=== PATIENT | female | born 1985 | race Caucasian/White ===

== ENCOUNTER 2018-07-25 09:59 | Outpatient (CLI) | payer OTHER | END 2018-07-25 14:54 | disposition home or self-care (01) | LOC: LAB 09:59 | DX: J11.1 Influenza due to unidentified influenza virus with other respiratory manifestations (principal) ==

== ENCOUNTER 2023-11-28 06:19 | Emergency (ER) | payer OTHER ==
[~2023-11-28] VITALS: Ht 160 cm; Wt 77.1 kg
[2023-11-28] MEDS ORDERED: OXCARBAZEPINE150 MG PO (06:36)
[2023-11-28] MEDS ORDERED: ZOLOFT100 MG PO (06:36)
[2023-11-28] MEDS ORDERED: PROMETHAZINE HCL 50 MG/ML AMPUL IM STA (07:01)
[2023-11-28] MEDS ORDERED: FAMOTIDINE/PF 20 MG/2 ML VIAL IV PUSH STA (07:01)
[2023-11-28] MEDS ORDERED: 0.9 % SODIUM CHLORIDE 1,000 ML IV ONE (07:15)
[2023-11-28] MEDS ORDERED: PROMETHAZINE HCL 50 MG/ML AMPUL IM ONE (07:22)
[2023-11-28] MEDS ORDERED: FAMOtidine 200mg/20ml VIAL ONE (07:23)
[2023-11-28 08:03] LABS: URINE APPEARANCE Cloudy; URINE BILIRRUBIN Negative (NEGATIVE); URINE BLOOD Negative; URINE COLOR Yellow; URINE GLUCOSE Negative (NEGATIVE); URINE LEUKOCYTE Negative; URINE NITRATE Negative; URINE UROBILINOGEN 0.2 E.U./dl
[2023-11-28 08:04] LABS: URINE BACTERIA 6226.6 uL (0.0-1933); URINE RBC 2.5 uL (0.0-20.8); URINE WBC 25.1 uL (0.0-23.2)
[2023-11-28 08:08] LABS: HEMATOCRIT 42.6 % (36.0-45.00); HEMOGLOBIN 15.1 g/dL (12.0-15.00); MEAN CELL VOLUME 91.8 fL (80.00-100.00); MEAN CORPUSCULAR HEMOGLOBIN 32.6 pg (27.00-32.0); MEAN CORPUSCULAR HGB CONC 35.5 g/dl (32.0-36.0); PLATELET COUNT 329 K/uL (150-450); RED BLOOD COUNT 4.64 M/uL (4.00-6.00); RED CELL DISTRIBUTION WIDTH 13.2 % (11.5-14.5)
[2023-11-28 08:36] LABS: URINE PROTEIN 100 (NEGATIVE)
[2023-11-28 08:46] LABS: ALBUMIN 4.7 gm/dL (3.4-5.0); ALKALINE PHOSPHATASE 71 U/L (50-136); ALT/SGPT 26 U/L (12-78); AMYLASE 156 U/L (25-115); ANION GAP 10 (10.0-20.0); AST/SGOT 22 U/L (15-37); BILIRUBIN TOTAL 0.76 mg/dL (0.3-1.2); BLOOD UREA NITROGEN 11 mg/dL (7-18); BUN CREA RATIO 12 (7.0-25.0); CALCIUM 10.1 mg/dL (8.5-10.1); CARBON DIOXIDE 24 mEq/L (21-32); CHLORIDE 107 mmol/L (98-107); CREATININE SERUM 0.92 mg/dL (0.55-1.02); GFR 69.07; GLOBULINA 3.9 G/DL (2.4-3.5); GLUCOSE FASTING 106 mg/dL (65-100); LIPASE 97 U/L (13-75); OSMOLALITY SERUM 274 MOSM/KG (275-295); POTASSIUM 4.35 mEq/L (3.5-5.1); SODIUM 137 mmol/L (136-145); TOTAL PROTEIN 8.6 gm/dL (6.4-8.2)
[2023-11-28 08:50] LABS: HCG QUANTITATIVE < 1 mUI/mL (1-3)
== END 2023-11-28 09:57 | disposition home or self-care (01) ==
LOC: ER 06:20
PROVIDERS: General Practice
DX: R11.10 Vomiting, unspecified (principal); Z88.8 Allergy status to other drugs, medicaments and biological substances; R53.81 Other malaise